=== PATIENT | female | born 1955 | race Caucasian/White ===

== ENCOUNTER 2018-02-05 12:08 | Emergency (ER) | payer SELFPAY ==
[~2018-02-05] VITALS: Ht 162.6 cm; Wt 45.4 kg
--- NOTE | 2018-02-05 13:00 | NUR ---
MARKED THE REDNESS PER MD ORDER FOR PT TO SEE IF THE REDNESS IS IMPROVING OR GETTING WORSE.
--- NOTE | 2018-02-05 13:13 | NUR ---
Patient discharged to home in stable conditon. Written and verbal after care instructions given. Patient verbalizes understanding of instructions.PT WALKS IN STEADY GAIT. PT ACOMPANIED BY SON.
== END 2018-02-05 13:18 | disposition home or self-care (01) ==
LOC: ER 12:08
DX: L03.116 Cellulitis of left lower limb (principal); Z88.5 Allergy status to narcotic agent; Z88.8 Allergy status to other drugs, medicaments and biological substances
CPT/HCPCS: A4663

== ENCOUNTER 2022-01-07 10:16 | Emergency (ER) | payer MEDICARE, BC ==
[~2022-01-07] VITALS: Ht 160 cm; Wt 43.1 kg
--- NOTE | 2022-01-07 11:31 | NUR ---
Dr [email or web address], medical screening exam in progress.
--- NOTE | 2022-01-07 11:47 | NUR ---
Tech at bedside to transport pt via gurney for CT scan. Pt in stable condition at time of transport.
--- NOTE | 2022-01-07 12:05 | NUR ---
Patient is back from CT in same condition, AOx4, NAD, pending results & disposition
--- NOTE | 2022-01-07 12:30 | NUR ---
Provider spoke with pt regarding results. Pt states understanding and agreeing with plan. Patient discharged to home in stable condition. Written and verbal after care instructions given. Patient verbalizes understanding of instructions. Stressed follow up or return to ER for worsening s/s.
[2022-01-07 12:37] VITALS: BP 120/76
== END 2022-01-07 12:37 | disposition home or self-care (01) ==
LOC: ER 10:16
DX: S09.8XXA Other specified injuries of head, initial encounter (principal); S16.1XXA Strain of muscle, fascia and tendon at neck level, initial encounter; W22.09XA Striking against other stationary object, initial encounter; Y93.89 Activity, other specified; Y92.524 Gas station as the place of occurrence of the external cause; Z88.6 Allergy status to analgesic agent; Z88.2 Allergy status to sulfonamides; E78.5 Hyperlipidemia, unspecified
CPT/HCPCS: 70450; 72125; A4663

== ENCOUNTER 2022-01-19 10:32 | Emergency (ER) | payer MEDICARE, BC ==
[~2022-01-19] VITALS: Ht 160 cm; Wt 43.1 kg
--- NOTE | 2022-01-19 11:20 | NUR ---
Dr Underwood at the bedside for MSE.
[2022-01-19] MEDS ORDERED: IBUP-1955 PO (11:57)
[2022-01-19 12:03] VITALS: BP 130/77
--- NOTE | 2022-01-19 12:04 | NUR ---
Patient discharged to home in stable condition. Written and verbal after care instructions given. Patient verbalizes understanding of instructions. Stressed follow up or return to ER for worsening s/s. Patient ambulate with steady gait.
== END 2022-01-19 12:06 | disposition home or self-care (01) ==
LOC: ER 10:36
DX: S39.012A Strain of muscle, fascia and tendon of lower back, initial encounter (principal); X58.XXXA Exposure to other specified factors, initial encounter; Y92.032 Bedroom in apartment as the place of occurrence of the external cause; E78.5 Hyperlipidemia, unspecified; Z88.2 Allergy status to sulfonamides; Z88.6 Allergy status to analgesic agent; M85.88 Other specified disorders of bone density and structure, other site
CPT/HCPCS: 72131; 73502; A4663

== ENCOUNTER 2022-05-31 10:57 | Emergency (ER) | payer MEDICARE, BC ==
[~2022-05-31] VITALS: Ht 160 cm; Wt 45.4 kg
[~2022-05-31 10:57] MED LIST: IBUP-1955 PO
--- NOTE | 2022-05-31 11:27 | NUR ---
PT IS IN ROOM #1B. DR YO EVALUATED THE PT.
[2022-05-31] MEDS ORDERED: IBUPROFEN 400 MG TABLET ONE (12:49)
[2022-05-31] MEDS ORDERED: IBUPROFEN 400 MG TABLET PO ONE (13:00)
== END 2022-05-31 12:56 | disposition home or self-care (01) ==
LOC: ER 10:57
DX: S63.502A Unspecified sprain of left wrist, initial encounter (principal); W01.0XXA Fall on same level from slipping, tripping and stumbling without subsequent striking against object, initial encounter; Y93.01 Activity, walking, marching and hiking; Y92.89 Other specified places as the place of occurrence of the external cause; Z88.6 Allergy status to analgesic agent; Z88.0 Allergy status to penicillin
CPT/HCPCS: 73110; A4663